=== PATIENT | female | born 1990 | race Caucasian/White ===

== ENCOUNTER → 2022-12-19 | Outpatient (CLI) | payer OTHER ==
[2022-12-20 14:31] LABS: Candida species (DNA Probe) Negative (NEGATIVE); G. vaginalis (DNA Probe) Positive (NEGATIVE); T. vaginalis (DNA Probe) Negative (NEGATIVE)
== END | disposition home or self-care (01) ==
LOC: LAB SHORT 16:30 → LAB 16:30
PROVIDERS: Family Medicine
DX: N76.0 Acute vaginitis (principal)
CPT/HCPCS: 87480; 87510; 87660

== ENCOUNTER 2023-01-11 10:27 | Day surgery (SDC) | payer OTHER ==
[~2023-01-11] VITALS: Ht 167.6 cm; Wt 72.0 kg
[2023-01-11] MEDS ORDERED: JENCYCLA0.35 MG (11:17)
--- NOTE | 2023-01-11 11:39 | NUR ---
01/11/[address] SANTOS DISCUSSED POST PROCEEDURE. DISCUSSED WAITING 8 HRS, PUMPING AND DUMPING AND KEEPING MEDICATION MINIMAL.
== END 2023-01-11 13:07 | disposition home or self-care (01) ==
LOC: ORSCSDS 10:27
PROVIDERS: Orthopaedic Surgery
PROC: 0LN50ZZ Release Right Lower Arm and Wrist Tendon, Open Approach (ICD-10-PCS; principal; 2023-01-11 12:00)
DX: M65.4 Radial styloid tenosynovitis [de Quervain] (principal)
CPT/HCPCS: J0690; J2250; J3010; J7120

== ENCOUNTER → 2023-02-14 | Outpatient (CLI) | payer OTHER ==
[~2023-02-14] MED LIST: JENCYCLA0.35 MG
[2023-02-16 02:08] LABS: CHLAMYDIA TRACHOMATIS, NAA Negative (Negative)
== END | disposition home or self-care (01) ==
LOC: LAB SHORT 10:55 → LAB 10:55
PROVIDERS: Family Medicine
DX: Z11.3 Encounter for screening for infections with a predominantly sexual mode of transmission (principal)
CPT/HCPCS: 87491; 87591

== ENCOUNTER → 2023-09-01 | Outpatient (CLI) | payer OTHER ==
[2023-09-01 15:45] LABS: Candida species (DNA Probe) Positive (NEGATIVE); G. vaginalis (DNA Probe) Negative (NEGATIVE); T. vaginalis (DNA Probe) Negative (NEGATIVE)
[2023-09-03 04:10] LABS: CHLAMYDIA TRACHOMATIS, NAA Negative (Negative)
== END | disposition home or self-care (01) ==
LOC: LAB 11:46 → LAB SHORT 11:46
PROVIDERS: Family Medicine
DX: Z01.419 Encounter for gynecological examination (general) (routine) without abnormal findings (principal)
CPT/HCPCS: 87480; 87491; 87510; 87591; 87660; G0145

== ENCOUNTER 2024-07-22 07:36 | Emergency (ER) | payer OTHER ==
[~2024-07-22] VITALS: Ht 167.6 cm; Wt 69.0 kg
[2024-07-22] MEDS ORDERED: ONDA4ODT MM (07:49)
[2024-07-22] MEDS ORDERED: BUSPIRONE HCL5 M6 PO (07:49)
[2024-07-22] MEDS ORDERED: ENILLORING VAG1 EACH VAG (07:49)
[2024-07-22] MEDS ORDERED: Atarax10 MG (07:49)
[2024-07-22] MEDS ORDERED: SUMA25 (07:50)
[2024-07-22] MEDS ORDERED: Metoclopramide HCl 5MG / ML 2ML Vial IV ONE (08:05)
[2024-07-22] MEDS ORDERED: NS 1,000 ML IV SCH (08:05)
[2024-07-22] MEDS ORDERED: Ketorolac Tromethamine 30mg Vial IV ONE (08:05)
[2024-07-22] MEDS ORDERED: FAMO20 PO (08:14)
[2024-07-22] MEDS ORDERED: METO10 PO (09:48)
[2024-07-22 09:55] VITALS: BP 121/66
== END 2024-07-22 09:57 | disposition home or self-care (01) ==
LOC: ER 07:36
DX: G43.909 Migraine, unspecified, not intractable, without status migrainosus (principal); K29.70 Gastritis, unspecified, without bleeding; Z79.899 Other long term (current) drug therapy; Z88.5 Allergy status to narcotic agent
CPT/HCPCS: 70450; 84703; 96374; 96375; 99284-25; J1885; J2765; J7030

== ENCOUNTER → 2024-09-04 | Outpatient (CLI) | payer OTHER ==
[~2024-09-04] MED LIST changes: +Atarax10 MG; +BUSPIRONE HCL5 M6 PO; +ENILLORING VAG1 EACH VAG; +FAMO20 PO; +METO10 PO; +ONDA4ODT MM; +SUMA25
[2024-09-05 11:39] LABS: Candida Group, PCR NOT DETECTED (NOT DETECT); Candida glabrata-krusei, PCR NOT DETECTED (NOT DETECT)
[2024-09-05 14:23] LABS: Bacterial Vaginosis PCR Positive (NEGATIVE)
[2024-09-06 17:44] LABS: HIV 1,2 COMBO ANTIGEN/ANTIBODY Negative (Negative)
[2024-09-06 17:50] LABS: HEPATITIS A ANTIBODY, IGM Negative (Negative); HEPATITIS B CORE ANTIBODY, IGM Negative (Negative); HEPATITIS B SURFACE ANTIGEN Negative (Negative); HEPATITIS C AB CIA INTERP Negative (Negative); HEPATITIS C ANTIBODY CIA INDEX 0.06 IV
[2024-09-07 15:16] LABS: APTIMA MEDIA TYPE Urine; C. TRACHOMATIS BY TMA Negative (Negative); N. GONORRHOEAE BY TMA Negative (Negative); SPECIMEN SOURCE Urine
== END ==
LOC: LAB SHORT 17:54 → LAB 17:54
PROVIDERS: Family Medicine
DX: Z11.3 Encounter for screening for infections with a predominantly sexual mode of transmission (principal)
CPT/HCPCS: 80074; 86592; 87389; 87481; 87491; 87591; 87661; 87801

== ENCOUNTER → 2025-11-19 | Outpatient (CLI) | payer OTHER ==
[2025-11-24 09:14] LABS: HEPATITIS C AB CIA INTERP Negative (Negative); HEPATITIS C ANTIBODY CIA INDEX 0.04 IV
[2025-11-24 09:58] LABS: HIV 1,2 COMBO ANTIGEN/ANTIBODY Negative (Negative)
== END ==
LOC: LAB SHORT 12:00 → LAB 12:00
PROVIDERS: Advanced Practice Midwife
DX: Z11.3 Encounter for screening for infections with a predominantly sexual mode of transmission (principal)
CPT/HCPCS: 86592; 86803; 87340; 87389